=== PATIENT | female | born 1980 | race Two or more races ===

== ENCOUNTER 2018-11-01 12:09 | Outpatient (CLI) | payer OTHER ==
[~2018-11-01 12:09] MED LIST: CEFUROXIME500 MG PO; FLONASE16 GM NASAL; MEDROL4 MG PO; ZYRTEC10 MG PO
== END 2018-11-01 13:30 | disposition home or self-care (01) ==
LOC: PRENATAL 12:09
DX: O09.513 Supervision of elderly primigravida, third trimester (principal); O36.8131 Decreased fetal movements, third trimester, fetus 1; O26.843 Uterine size-date discrepancy, third trimester

== ENCOUNTER → 2018-11-08 | Outpatient (CLI) | payer OTHER ==
[~2018-11-08] MED LIST changes: +COLACE100 MG PO; +IBUPROFEN600 MG PO; +PRENATAL TABLE1 EAC1 PO
== END | disposition home or self-care (01) ==
LOC: PRENATAL 10:28
DX: O36.8930 Maternal care for other specified fetal problems, third trimester, not applicable or unspecified (principal); O09.513 Supervision of elderly primigravida, third trimester

== ENCOUNTER 2018-11-11 06:32 | Inpatient (IN) | payer OTHER ==
[~2018-11-11] VITALS: Ht 170.2 cm; Wt 85.7 kg
[~2018-11-11 06:32] MED LIST changes: -COLACE100 MG PO; -IBUPROFEN600 MG PO; -PRENATAL TABLE1 EAC1 PO
[2018-11-11] MEDS ORDERED: PRENATAL TABLE1 EAC1 PO (07:37)
[2018-11-14] MEDS ORDERED: COLACE100 MG PO (12:04)
[2018-11-14] MEDS ORDERED: IBUPROFEN600 MG PO (12:04)
== END 2018-11-14 14:47 | disposition home or self-care (01) | DRG 788 ==
LOC: LDR 06:32 → OB/GYN 06:32 → LDR 07:36 → OB/GYN 09:54
PROVIDERS: ADMIT Obstetrics & Gynecology
PROC: 4A1HXCZ Monitoring of Products of Conception, Cardiac Rate, External Approach (ICD-10-PCS; 2018-11-11)
PROC: 4A033R1 Measurement of Arterial Saturation, Peripheral, Percutaneous Approach (ICD-10-PCS; 2018-11-11)
PROC: 10D00Z1 Extraction of Products of Conception, Low, Open Approach (ICD-10-PCS; principal; 2018-11-11 10:00)
DX: O76 Abnormality in fetal heart rate and rhythm complicating labor and delivery (principal); Z3A.38 38 weeks gestation of pregnancy; Z37.0 Single live birth

== ENCOUNTER → 2020-02-29 | Outpatient (CLI) | payer OTHER ==
[~2020-02-29] MED LIST changes: +COLACE100 MG PO; +IBUPROFEN600 MG PO; +PRENATAL TABLE1 EAC1 PO
== END | disposition home or self-care (01) ==
LOC: OFIC 805 10:30
PROVIDERS: ATTEND Otolaryngology
DX: J33.8 Other polyp of sinus (principal); J34.3 Hypertrophy of nasal turbinates; J32.8 Other chronic sinusitis